=== PATIENT | male | born 1975 | race Caucasian/White ===

== ENCOUNTER 2016-04-22 06:46 | Emergency (ER) | payer OTHER ==
[2016-04-22 07:02] VITALS: BMI 29.2
--- NOTE | 2016-04-22 07:13 | PDOC ---
History of Present Illness - General History Source: Patient Exam Limitations: No Limitations - History of Present Illness Initial Comments: 04/22/16 07:17 The patient is a 40-year-old male with a significant past medical history of hypertension, gastroesophageal reflux disease and anxiety who presents to the emergency department via walk-in for further evaluation of palpitations since yesterday. He reports experiencing funny intermittent sensations that start from his bilateral legs and radiates up to the epigastrium, arms and throat, for which he simultaneously experiences palpitations, described as racing heart beats. He admits that he is non-compliant with all of his medications, as he reports he experiences side effects of hallucinations. He primarily had a lot of orange juice yesterday and reports not keeping hydrated with water and noncompliance with his low sodium diet. He underwent an outpatient electrocardiogram and stress test at his D, Dr. Andre Finnegan office, for which he was informed that his HR was slightly elevated, but his heart function was within normal limits. Patient also recalls undergoing a 24 hour holter monitor, approximately 2 weeks ago, which was also normal as per patient. He also notes experiencing shortness of breath, bur attributes this to his nasal congestion as he currently has a cold. He denies fever, chills, cough, chest pain, hemoptysis, diaphoresis, headache. He denies jaw/ back pain lower extremity pain/swelling, calf tenderness/pain Allergies: No Known Drug Allergies Past Surgical History: Rotator cuff shoulder surgery Social History: Former tobacco smoker and ETOH use. (Quit approximately 6 years ago; smoked 1 pack/day for 20 years). No recreational drug use. Primary Care Physician: Dr. Andre Hassan [phone]/ [phone] <Charissa Glaser - Last Filed: 04/22/16 09:40> <Ernie Nguyen - Last Filed: 04/22/16 10:07> - General Chief Complaint: Palpitations Stated Complaint: PALPITATIONS Time Seen by Provider: 04/22/16 07:11 Past History <Charissa Glaser - Last Filed: 04/22/16 09:40> - Past Medical History GI Disorders: Yes (abdominal pain, bloating) HTN: Yes Psychiatric Problems: Yes (anxiety) - Immunization History Immunization Up to Date: Yes - Psycho/Social/Smoking Cessation Hx Anxiety: No Suicidal Ideation: No Smoking History: Never smoked Have you smoked in the past 12 months: No If you are a former smoker, when did you quit?: 6 years ago Hx Alcohol Use: No Drug/Substance Use Hx: No Substance Use Type: None Hx Substance Use Treatment: No <JuannehalErnie lr - Last Filed: 04/22/16 10:07> - Past Medical History Allergies/Adverse Reactions: Allergies Allergy/AdvReac Type Severity Reaction Status Date / Time No Known Allergies Allergy Verified 04/22/16 06:52 Home Medications: Ambulatory Orders Metoprolol Succinate [Toprol XL -] 25 mg PO DAILY 02/15/16 Review of Systems - Review of Systems Constitutional: No: Chills, Fever Respiratory: No: Cough, Shortness of Breath Cardiac (ROS): Yes: Chest Pain, Palpitations. No: Edema ABD/GI: Yes: Nausea, Indigestion. No: Diarrhea, Vomiting Musculoskeletal: Yes: Joint Pain, Muscle Pain Neurological: No: Headache Psychiatric: Yes: Anxiety, Stressors All Other Systems: Reviewed and Negative <Clemente Nguyenfaele - Last Filed: 04/22/16 10:07> *Physical Exam - Vital Signs Last Vital Signs Temp Pulse Resp BP Pulse Ox 98.5 F 105 H 18 145/99 98 04/22/16 06:52 04/22/16 06:52 04/22/16 06:52 04/22/16 06:52 04/22/16 06:52 - Physical Exam Comments: 04/22/16 07:17 GENERAL: The patient is awake, alert, and fully oriented, in no acute distress. HEAD: Normal with no signs of trauma. EYES: Pupils equal, round and reactive to light, extraocular movements intact, sclera anicteric, conjunctiva clear with no pallor. ENT: Ears normal, nares patent, oropharynx clear without exudates. Moist mucous membranes. NECK: Normal range of motion, supple without lymphadenopathy, JVD, or masses. LUNGS: Breath sounds equal, clear to auscultation bilaterally. No wheeze/ crackles. HEART: Regular rate and rhythm, normal S1 and S2 without murmur or rub. ABDOMEN: Soft/nontender/nondistended. BS wnl. No guarding or rebound. No palpable masses. No hepatosplenomegaly. EXTREMITIES: Normal range of motion, no edema. No clubbing or cyanosis. No cords, erythema, or tenderness. NEUROLOGICAL: Cranial nerves II through XII grossly intact. Normal speech. PSYCH: Normal mood, normal affect. SKIN: Warm, Dry, normal turgor, no rashes or lesions noted. <Charissa Glaser - Last Filed: 04/22/16 09:40> - Vital Signs Last Vital Signs Temp Pulse Resp BP Pulse Ox 98.5 F 105 H 18 145/99 98 04/22/16 06:52 04/22/16 06:52 04/22/16 06:52 04/22/16 06:52 04/22/16 06:52 <Ernie Nguyen - Last Filed: 04/22/16 10:07> Heart Score/ECG Review #1 ECG reviewed & interpreted by me at: 07:02 General ECG Interpretation: Sinus Rhythm, Normal Rate (92), Normal Intervals, No acute ischemic changes Compared to previous ECG there are: No significant change (03/03/16) #2 ECG reviewed & interpreted by me at: 09:46 04/22/16 10:00 Sinus rhythm at 93, possible subtle APC as patient was symptomatic during the EKG, likely an ectopic focus but overall normal-appearing rate and rhythm. No ischemic changes, the ectopic/premature beat is still single <Ernie Nguyen - Last Filed: 04/22/16 10:07> ED Treatment Course - LABORATORY CBC & Chemistry Diagram: 04/22/16 07:50 04/22/16 07:50 <Charissa Glaser - Last Filed: 04/22/16 09:40> - LABORATORY CBC & Chemistry Diagram: 04/22/16 07:50 04/22/16 07:50 <Ernie Nguyen - Last Filed: 04/22/16 10:07> Medical Decision Making - Medical Decision Making 04/22/16 09:39 Overhead page to patient's PMD, Dr. Andre Hassan. 04/22/16 09:40 A call was made to patient's Primary Care Physician, Dr. Andre Hassan at [phone]. Awaiting call back. <Charissa Glaser - Last Filed: 04/22/16 09:40> - Medical Decision Making 04/22/16 08:36 A portion of this note was documented by scribe services under my direction. I have reviewed the details of the note, within reason, and agree with the documentation with the following case summary and management plan written by me. Healthy 40-year-old male with history of possible anxiety, GERD, palpitations presents with acute on chronic symptoms of palpitations, hand and foot tingling , dyspepsia and GERD. Cardiac workup including stress test yesterday and Holter monitor 2 weeks ago were normal. He has been prescribed antacids, but self DC'd. Has not yet seen a rod mill tender, has never had endoscopy. Admits to stressors at home, denies any acute psych issues. Has been prescribed anxiolytics in the past but also self DC'd. Vital signs normal. Slightly anxious Exam is otherwise normal 40-year-old male with no risk factors for ACS or PE, has had extensive work ER workup and outpatient workup in the past, now presents with persistent constellation of symptoms that seem most consistent with anxiety/depression. Likely has gastritis and GERD, no acute peritoneal findings. Will recheck labs EKG is nonischemic Trial of antacid Reassurance, she talks with Dr. Hassan about a referral for or starting a more long-term anxiolytic, will encourage taking antacids and GI referral 04/22/16 09:32 Labs are within normal limits, no leukocytosis, lipase is normal, troponin is negative. Pt now feeling the palpitations intermittently, on exam he is regular but is having occasional premature beats that clearly correlate with his symptoms of a palpitations and a "chest spasm". Single beats, none in sequence. This explains his sxs, in light of normal cardiac workup, no need for immediate further intervention. Will repeat EKG to attempt to capture type of premature beat, then dispo to Dr. Hassan. 04/22/16 10:01 Reassured and can be discharged, single occasional APC. Normal workup. Encouraged to take his metoprolol since the APCs are happening frequently today. Discussed with Dr. Pollard, philomena Hassan, who agrees pt can be discharged and f/u with the cardiology group in the office. <Ernie Nguyen - Last Filed: 04/22/16 10:07> *DC/Admit/Observation/Transfer - Attestations Scribe Attestion: 04/22/16 07:17 Documentation prepared by Charissa Glaser, acting as medical education coordinator for Ernie Nguyen MD. <Charissa Glaser - Last Filed: 04/22/16 09:40> <Ernie Nguyen - Last Filed: 04/22/16 10:07> Diagnosis at time of Disposition: Anxiety, APC (atrial premature contractions) GERD (gastroesophageal reflux disease) Qualifiers: Esophagitis presence: without esophagitis Qualified Code(s): K21.9 - Gastro- esophageal reflux disease without esophagitis - Discharge Dispostion Disposition: HOME Condition at time of disposition: Stable - Referrals Referrals: Arpan Garcia MD [Staff Physician] - Andre Hassan MD [Staff Physician] - Deny Viramontes MD [Staff Physician] - - Patient Instructions Printed Discharge Instructions: DI for Arrhythmias Additional Instructions: Activity as tolerated. Stay hydrated. Advance diet as tolerated, avoiding dairy , spicy or fatty food, caffeine and alcohol. Blood tests today show no abnormalities. Your symptoms are likely due to occasional premature atrial beats in the heart. These are single and benign, but can be evaluated further by Cardiology. Continue your medications as previously prescribed by your physician. Also consider taking Pepcid 20mg daily for your stomach discomfort. You should follow up with Dr. Hassan and your launch operator as soon as possible regarding today's emergency department visit. Also consider seeing a Headwaitress for your stomach, consider calling Dr. Viramontes for an appointment. Return to the emergency department for any new or concerning symptoms, particularly persistent palpitations or chest pain or difficulty breathing, vomiting blood, severe abdominal pain.
[2016-04-22] MEDS ORDERED: FAMOTIDINE 20 MG/50 ML IVPB 50 ML IVPB ONE ×2 (07:35→07:42)
[2016-04-22 08:08] LABS: BASOPHIL 0.3 % (0-2.0); EOSINOPHIL 3.2 % (0-4.5); MCH 29.5 pg (25.7-33.7); MCHC 33.1 g/dl (32.0-35.9); MEAN PLT VOLUME 8.6 fl (7.5-11.1); NEUTROPHILS 72.5 % (42.8-82.8); PLATELET COUNT 285 K/MM3 (134-434); RDW 12.9 % (11.9-15.9); WHITE BLOOD COUNT 7.7 K/mm3 (4.0-10.0)
[2016-04-22 08:37] LABS: ALBUMIN 4.1 g/dl (3.4-5.0); ANION GAP 6 (8-16); BILIRUBIN,TOTAL 0.9 mg/dL (0.2-1.0); CALCIUM 8.8 mg/dL (8.5-10.1); CO2 32 mmol/L (21-32); CREATININE 0.8 mg/dL (0.7-1.3); GLUCOSE,RANDOM 90 mg/dL (74-106); MAGNESIUM 2.9 mg/dL (1.8-2.4); SGOT/AST 14 U/L (15-37); SGPT/ALT 23 U/L (12-78); TOT PROT 6.9 g/dl (6.4-8.2)
[2016-04-22 08:40] LABS: ALK PHOS 88 U/L (45-117); TROPONIN I < 0.02 ng/ml (0.00-0.05)
--- NOTE | 2016-04-22 09:21 | EKG ---
Test Reason : Blood Pressure : / mmHG Vent. Rate : 092 BPM Atrial Rate : 092 BPM P-R Int : 144 ms QRS Dur : 080 ms QT Int : 338 ms P-R-T Axes : 069 069 031 degrees QTc Int : 417 ms NORMAL SINUS RHYTHM WITH SINUS ARRHYTHMIA NORMAL ECG WHEN COMPARED WITH ECG OF 03-MAR-2016 14:51, NO SIGNIFICANT CHANGE WAS FOUND Confirmed by BAUTISTA MORGAN MD ([id number]) on 04/22/2016 9:21:06 AM Referred By: Confirmed By:BAUTISTA MORGAN MD
[2016-04-22 10:11] VITALS: BP 134/87; PULSE 86; TEMP 97.8
--- NOTE | 2016-04-22 23:45 | EKG ---
Test Reason : Blood Pressure : / mmHG Vent. Rate : 093 BPM Atrial Rate : 093 BPM P-R Int : 132 ms QRS Dur : 088 ms QT Int : 344 ms P-R-T Axes : 069 053 038 degrees QTc Int : 427 ms NORMAL SINUS RHYTHM NORMAL ECG WHEN COMPARED WITH ECG OF 22-APR-2016 07:02, NO SIGNIFICANT CHANGE WAS FOUND Confirmed by SILVIA RUSH MD ([id number]) on 04/22/2016 11:44:52 PM Referred By: Confirmed By:SILVIA RUSH MD
== END 2016-04-22 10:23 | disposition home or self-care (01) ==
LOC: JER 06:46
PROC: 3E033GC Introduction of Other Therapeutic Substance into Peripheral Vein, Percutaneous Approach (ICD-10-PCS; principal; 2016-04-22)
DX: I49.1 Atrial premature depolarization (principal); F41.9 Anxiety disorder, unspecified; K21.9 Gastro-esophageal reflux disease without esophagitis
CPT/HCPCS: 36415; 80053; 82550; 82553; 83690; 83735; 84484; 85025; 93005; 93010; 96365; 99284-25

== ENCOUNTER 2016-05-22 14:37 | Emergency (ER) | payer OTHER ==
[2016-05-22 14:44] VITALS: BP 136/94; PULSE 110; TEMP 98.3; BMI 27.7
--- NOTE | 2016-05-22 16:44 | PDOC ---
History of Present Illness - General Chief Complaint: Ear Problem Stated Complaint: EAR PROBLEM Time Seen by Provider: 05/22/16 16:06 History Source: Patient Exam Limitations: No Limitations - History of Present Illness Initial Comments: 05/22/16 16:40 40 yr male with history of HtN, anxiety states he started taking clonazepam 1mg TID prescribed by Dr.Amir Arambula started 5 days ago stopped yesterday because he felt confused. Pt states he would have thoughts and not remember events just prior. Pt denies suicidal thoughts or homicidal thoughts. Pt denies hearing voices. Pt also with headache and right sided ear pain. Pt admits last week had cough and URI symptoms. Denies ETOH or drug use. 05/22/16 16:52 Severity: mild Past History - Past Medical History Allergies/Adverse Reactions: Allergies Allergy/AdvReac Type Severity Reaction Status Date / Time No Known Allergies Allergy Verified 05/22/16 14:40 Home Medications: Ambulatory Orders Metoprolol Succinate [Toprol XL -] 25 mg PO DAILY 02/15/16 Amoxicillin - [Amoxicillin 500mg Capsule -] 500 mg PO BID #14 capsule 05/22/16 Clonazepam [Klonopin] 1 mg PO TID 05/22/16 GI Disorders: Yes (abdominal pain, bloating) HTN: Yes Psychiatric Problems: Yes (anxiety/depression) - Immunization History Immunization Up to Date: Yes - Psycho/Social/Smoking Cessation Hx Anxiety: No Suicidal Ideation: No Smoking History: Never smoked Have you smoked in the past 12 months: No If you are a former smoker, when did you quit?: 6 years ago Information on smoking cessation initiated: No Hx Alcohol Use: No Drug/Substance Use Hx: No Substance Use Type: None Hx Substance Use Treatment: No Review of Systems - Review of Systems Able to Perform ROS?: Yes Is the patient limited Polish proficient: No Constitutional: Yes: Symptoms Reported HEENTM: Yes: Symptoms Reported Neurological: Yes: Symptoms reported, Headache *Physical Exam - Vital Signs Last Vital Signs Temp Pulse Resp BP Pulse Ox 98.3 F 110 H 18 136/94 100 05/22/16 14:41 05/22/16 14:41 05/22/16 14:41 05/22/16 14:41 05/22/16 14:41 - Physical Exam General Appearance: Yes: Nourished, Appropriately Dressed HEENT: positive: EOMI, KIRTI, Normal ENT Inspection, TMs Normal, Pharynx Normal, TM Bulging (right ), TM Erythema Neck: positive: Supple Respiratory/Chest: positive: Lungs Clear, Normal Breath Sounds Cardiovascular: positive: Regular Rhythm, Regular Rate Gastrointestinal/Abdominal: positive: Normal Bowel Sounds, Soft Musculoskeletal: positive: Normal Inspection Extremity: positive: Normal Capillary Refill, Normal Inspection, Normal Range of Motion Integumentary: positive: Normal Color, Dry, Warm Neurologic: positive: Fully Oriented, Alert, Normal Mood/Affect, Normal Response , Motor Strength 5/5. negative: Confused, Disoriented ED Treatment Course - RADIOLOGY Radiology Studies Ordered: Category Date Time Status HEAD CT WITH CONTRAST [CT] Stat CT Scan 05/22/16 16:38 Ordered Medical Decision Making - Medical Decision Making 05/22/16 16:55 cc: confusion, ear pain pt started clonazepam 1mg TID wednesday. pt stopped today because he felt side effects from the medications. pt with AOM right ear and headache will get ct to r./o CVA pt has apt Wednesday with pshychologist PT denies ANY thoughts of wanting to hurt self or any in the past , no homicidal thoughts or manic behavior displayed in the ER pt is calm and cooperative well appearing. 05/22/16 17:43 *DC/Admit/Observation/Transfer Diagnosis at time of Disposition: Acute bacterial otitis media Qualifiers: Laterality: right Qualified Code(s): H66.91 - Otitis media, unspecified, right ear Adverse drug effect Qualifiers: Encounter type: initial encounter Qualified Code(s): T88.7XXA - Unspecified adverse effect of drug or medicament, initial encounter - Discharge Dispostion Disposition: HOME Condition at time of disposition: Good Admit: No - Prescriptions Prescriptions: Amoxicillin - [Amoxicillin 500mg Capsule -] 500 mg PO BID #14 capsule - Referrals Referrals: Andre Hassan MD [Primary Care Provider] - - Patient Instructions Additional Instructions: follow with psychologist wednesday as planned do not take anymore clonazepam or only take one a day if you need to tomorrow and Wednesday take the antibiotic as directed for ear infection take tylenol for headache as needed follow with next week if not feeling better RETURN TO ER RIGHT AWAY FOR ANY THOUGHTS OF SUICIDE , HOMICIDE OR IF YOU ARE HEARING VOICES OR ANY OTHER CONCERNING SYMPTOMS
== END 2016-05-22 17:49 | disposition home or self-care (01) ==
LOC: JERFT 14:37
DX: T88.7XXA Unspecified adverse effect of drug or medicament, initial encounter (principal); H66.91 Otitis media, unspecified, right ear; X58.XXXA Exposure to other specified factors, initial encounter; Y93.9 Activity, unspecified; I10 Essential (primary) hypertension; F41.9 Anxiety disorder, unspecified; Z87.891 Personal history of nicotine dependence
CPT/HCPCS: 70450-TC; 99281-25

== ENCOUNTER 2016-11-29 12:20 | Emergency (ER) | payer OTHER ==
[2016-11-29 12:27] VITALS: BP 144/97; PULSE 87; TEMP 97.8; BMI 28.2
--- NOTE | 2016-11-29 13:28 | PDOC ---
History of Present Illness - General Chief Complaint: Rash Stated Complaint: ? shingles RASH Time Seen by Provider: 11/29/16 13:07 History Source: Patient Exam Limitations: No Limitations - History of Present Illness Initial Comments: 11/29/16 13:30 40-year-old male presents to the emergency room with complaints of painful burning itchy rash to the left side of his torso for the past 3 days. Patient states now has spread to his anterior left chest. Patient states had chickenpox as a child and denies any recent illness, recent travel, recent sick contacts. Patient has no other complaints at this time. Timing/Duration: getting worse Severity: moderate Associated Symptoms: reports: rash Past History - Travel Traveled outside of the country in the last 30 days: No Close contact w/someone who was outside of country & ill: No - Past Medical History Allergies/Adverse Reactions: Allergies Allergy/AdvReac Type Severity Reaction Status Date / Time No Known Allergies Allergy Verified 11/29/16 12:22 Home Medications: Ambulatory Orders Ibuprofen [Motrin -] 600 mg PO TID PRN #21 tablet 11/29/16 Valacyclovir HCl [Valtrex] 1,000 mg PO TID #21 tablet 11/29/16 GI Disorders: Yes (abdominal pain, bloating) HTN: Yes Psychiatric Problems: Yes (anxiety/depression) - Immunization History Immunization Up to Date: Yes - Psycho/Social/Smoking Cessation Hx Anxiety: No Suicidal Ideation: No Smoking History: Never smoked Have you smoked in the past 12 months: No If you are a former smoker, when did you quit?: 6 years ago Information on smoking cessation initiated: No Hx Alcohol Use: No Drug/Substance Use Hx: No Substance Use Type: None Hx Substance Use Treatment: No Patient Lives Alone: No Lives with/in: spouse/SO Review of Systems - Review of Systems Able to Perform ROS?: Yes Constitutional: No: Symptoms Reported HEENTM: No: Symptoms Reported Respiratory: No: Symptoms reported Cardiac (ROS): No: Symptoms Reported ABD/GI: No: Symptoms Reported Integumentary: Yes: Rash Neurological: No: Symptoms reported Hematologic/Lymphatic: No: Symptoms Reported *Physical Exam - Vital Signs Last Vital Signs Temp Pulse Resp BP Pulse Ox 97.8 F 87 18 144/97 100 11/29/16 12:23 11/29/16 12:23 11/29/16 12:23 11/29/16 12:23 11/29/16 12:23 - Physical Exam General Appearance: Yes: Nourished, Appropriately Dressed. No: Apparent Distress HEENT: positive: EOMI, KIRTI, Pharynx Normal. negative: Pale Conjunctivae Integumentary: positive: Other (Noted linear cluster papular vesicular rash following the dermatome at T10 level. Rash begins to the left midscapular line and then reappears at left sternal border. ) Medical Decision Making - Medical Decision Making 11/29/16 13:33 Patient worsening rash to the left side of his body. Patient exam appears to have shingles. Patient will be ordered for Valtrex and Motrin. Patient given supportive care instructions. *DC/Admit/Observation/Transfer Diagnosis at time of Disposition: Shingles Qualifiers: Herpes zoster complications: unspecified herpes zoster complication Qualified Code(s): B02.8 - Zoster with other complications - Discharge Dispostion Disposition: HOME Condition at time of disposition: Good - Prescriptions Prescriptions: Ibuprofen [Motrin -] 600 mg PO TID PRN #21 tablet PRN Reason: Pain Valacyclovir HCl [Valtrex] 1,000 mg PO TID #21 tablet - Referrals Referrals: Andre Hassan MD [Primary Care Provider] - - Patient Instructions Printed Discharge Instructions: DI for Shingles Additional Instructions: Please take pain medications needed for discomfort. Please start medication immediately to decrease severity. If symptoms worsen please return to ED. otherwise follow-up with your primary care physician.
== END 2016-11-29 13:35 | disposition home or self-care (01) ==
LOC: JERFT 12:20
DX: B02.8 Zoster with other complications (principal); I10 Essential (primary) hypertension; F41.8 Other specified anxiety disorders
CPT/HCPCS: 99281-25